=== PATIENT | male | born 1950 | race Caucasian/White ===

== ENCOUNTER 2019-07-20 08:53 | Inpatient (IN) ==
[2019-07-20] MEDS ORDERED: *HR* FentaNYL (PF) 100 MCG/2 ML VIAL ONE (09:51)
[2019-07-20] MEDS ORDERED: Ondansetron 4 MG/2 ML VIAL IVP ONE (09:52)
[2019-07-20] MEDS ORDERED: *HR* OxyCODONE Immed Rel 5 MG TABLET PO PRN ×2 (09:52→13:59)
[2019-07-20] MEDS ORDERED: *HR* HYDROmorphone (PF) 1 MG/ML SYRINGE IVP PRN (09:52)
[2019-07-20] MEDS ORDERED: *HR* Propofol 200 MG/20 ML VIAL IVP ONE (09:52)
[2019-07-20] MEDS ORDERED: Lidocaine -MPF 4% 5 ML AMPUL ONE (09:53)
[2019-07-20] MEDS ORDERED: *HR* Succinylcholine 200 MG/10 ML VIAL IVP ONE (09:54)
[2019-07-20] MEDS ORDERED: Clindamycin 900 MG/50 ML 900 MG/50 ML IV.SOLN IVPB ONE (10:05)
[2019-07-20] MEDS ORDERED: *HR* Midazolam HCl 2 MG/2 ML VIAL ONE (10:15)
[2019-07-20] MEDS ORDERED: Ringers Solution, Lactated 1,000 ML IVC SCH ×2 (10:15→13:59)
[2019-07-20] MEDS ORDERED: Ropivacaine/PF 0.5% 30 ML VIAL ONE (10:45)
[2019-07-20] MEDS ORDERED: ROPIVACAINE/PF/NS 0.25% 1 EACH SYRINGE INTRAART ONE (10:46)
[2019-07-20] MEDS ORDERED: Ethanol\\Acetic Acid\\Na Ace\\Ben 1,000 ML IRRIG.SOLN IR ONE (10:46)
[2019-07-20] MEDS ORDERED: EPHEDrine 50 MG/ML VIAL ONE (11:42)
[2019-07-20] MEDS ORDERED: *HR* PHENYLEPHRINE 1,000 MCG/10 ML SYRINGE IVP ONE (11:48)
[2019-07-20] MEDS ORDERED: *HR* Vasopressin 20 UNIT/ML VIAL ONE (11:57)
[2019-07-20] MEDS ORDERED: MOM Conc 10 ML UD.LIQ PO PRN (13:59)
[2019-07-20] MEDS ORDERED: Sennosides 8.6 MG TABLET PO PRN (13:59)
[2019-07-20] MEDS ORDERED: Naloxone 0.4 MG/ML INJ IVP PRN (13:59)
[2019-07-20] MEDS ORDERED: *HR* OxyCODONE/APAP 5/325 TABLET PO PRN (13:59)
[2019-07-20] MEDS ORDERED: Ondansetron 4 MG/2 ML VIAL IVP PRN (13:59)
[2019-07-20 14:03] LABS: Hematocrit 46.1 % (37.5-50.1); Hemoglobin 15.4 g/dL (12.9-16.9)
[2019-07-20] MEDS: Clindamycin 900 MG/50 ML 900 MG/50 ML IV.SOLN IVPB SCH ×2 (15:35→23:50)
[2019-07-20] MEDS ORDERED: ceFAZolin 2,000 MG in 0.9 % Sodium Chloride 100 ML IVPB SCH (16:00)
[2019-07-20] MEDS ORDERED: lamoTRIgine 100 MG TABLET PO SCH (18:00)
[2019-07-20] MEDS ORDERED: *HR* Enoxaparin 30 MG/0.3 ML SYRINGE SQ SCH (18:00)
[2019-07-20] MEDS: *HR* Enoxaparin 30 MG/0.3 ML SYRINGE SQ SCH (18:24)
[2019-07-20] MEDS: clonazePAM 0.5 MG TABLET PO SCH (21:00)
[2019-07-21 02:24] LABS: Hematocrit 44.2 % (37.5-50.1); Hemoglobin 15.6 g/dL (12.9-16.9)
[2019-07-21 02:39] LABS: BUN/Creatinine Ratio 19 (6-26); Blood Urea Nitrogen 20 mg/dL (8-23); Calcium 9.1 mg/dL (8.6-10.3); Carbon Dioxide 22 mEq/L (23-29); Chloride 101 mEq/L (98-107); Glucose 172 mg/dL (70-105); Osmolality,Calculated 283 (280-300); Potassium 4.3 mEq/L (3.5-5.1); Sodium 133 mEq/L (136-145); eGFR For African Americans > 60 (> 60); eGFR For Non-African Americans > 60 (> 60)
[2019-07-21] MEDS: *HR* Enoxaparin 30 MG/0.3 ML SYRINGE SQ SCH (05:32)
[2019-07-21] MEDS ORDERED: Aspirin Enteric Coated 81 MG Tablet PO SCH (09:00)
[2019-07-21] MEDS: clonazePAM 0.5 MG TABLET PO SCH (09:39)
[2019-07-21 11:47] VITALS: BP 126/72
== END 2019-07-21 12:55 | disposition home or self-care (01) | DRG 483 ==
LOC: SAMDAY 08:53 → 3NENU 13:41
PROVIDERS: ADMIT Orthopaedic Surgery; ATTEND Orthopaedic Surgery